=== PATIENT | male | born 1960 | race Caucasian/White ===

== ENCOUNTER 2017-09-29 21:04 | Emergency (ER) | payer OTHER, SELFPAY ==
[2017-09-29 21:05] VITALS: BP 196/111; PULSE 117; RESP 24; TEMP 38.1; O2SAT 94; BMI 37.9
--- NOTE | 2017-09-29 21:12 | EKG12_ITS ---
Test Reason : PALP Blood Pressure : / mmHG Vent. Rate : 123 BPM Atrial Rate : 123 BPM P-R Int : 130 ms QRS Dur : 088 ms QT Int : 302 ms P-R-T Axes : 033 025 029 degrees QTc Int : 432 ms Sinus tachycardia Otherwise normal ECG Confirmed by MARY HUBER, HEAVEN ([id number]), editorial intern NORI ARCHULETA ([id number]) on 10/03/2017 1:58:54 PM Referred By: Confirmed By:HEAVEN HERNANDEZ MD
--- NOTE | 2017-09-29 21:16 | ED.RN ---
NO OLD EKG'S IN MUSE
[2017-09-29 21:32] LABS: Absolute Lymphocyte Count 1.26 X10^3/ul (0.83-4.51); Absolute Neutrophil Count 5.6 X10^3/uL (2.0-7.7); Basophil# 0.05 X10^3/uL; Basophil% 0.6 % (0-1); Eosinophil# 0.14 X10^3/uL; Eosinophils% 1.7 % (0-5); Hematocrit 44.7 % (40-54); Hemoglobin 15.5 g/dl (13.0-16.5); Lymphocyte # 1.26 X10^3/ul (4.0); Lymphocyte % 15.2 % (19-41); Mean Corp Hgb Conc 34.7 g/gl (32-36); Mean Corpuscular Hgb 30.6 pg (27.0-32.0); Mean Corpuscular Volume 88.3 fL (80-94); Monocyte# 1.29 X10^3/uL; Monocyte% 15.5 % (0-10); Neutrophil # 5.56 X10^3/uL (2.7-7.7); Neutrophil % 66.9 % (47-70); Platelet Count 209 K/mm3 (150-450); RBC Distribution Width CV 12.8 % (11.6-14.6); RBC Distribution Width SD 41.3 fl (35.1-43.9); Red Blood Count 5.06 M/mm3 (4.6-6.2); White Blood Count 8.3 K/mm3 (4.4-11.0)
[2017-09-29 21:35] LABS: POSITIVE COUNT NO; POSITIVE DIFFERENTIAL NO; POSITIVE MORPHOLOGY NO
--- NOTE | 2017-09-29 21:40 | RAD_ITS ---
STUDY: X-RAY CHEST REASON FOR EXAM: Male, 57 years old. Hypertension. TECHNIQUE: Single AP portable view of the chest. COMPARISON: None. FINDINGS: The lungs are clear and expanded. There is no demonstrated pleural abnormality. Normal size heart. Normal mediastinum and lucille. Normal visualized pulmonary arteries. Normal visualized aortic arch and descending thoracic aorta. Normal visualized thoracic spine. Normal visualized ribs, clavicles, and shoulders. There is no demonstrated abnormality of the visualized soft tissue structures of the upper abdomen. RAD/Chest 1 View (Portable) IMPRESSION: Normal x-ray examination of the chest. Electronically Signed: Segun Ruiz MD at 22:00 EDT , Service support ,
[2017-09-29 21:55] LABS: Anion Gap 7 (5-15); BUN 19 mg/dL (7-18); BUN/Creat Ratio 14.8 RATIO (10-20); Calcium,Total 8.5 mg/dL (8.5-10.1); Chloride 100 mmol/L (98-107); Creatinine, Serum 1.28 mg/dL (0.70-1.30); EST Glomerular Filtration Rate 62 mL/min (>60); Est Glom Filt Rate - Afr Amer 74 mL/min (>60); Estimated Creatinine Clearance 65.74 ml/min; Glucose 135 mg/dL (74-106); Potassium 4.5 mmol/L (3.5-5.1); Sodium Level 134 mmol/L (136-145)
[2017-09-29] MEDS: Acetaminophen 500 MG Tablet 1000 MG PO (23:06)
[2017-09-29 23:07] VITALS: BP 165/94; PULSE 102; RESP 19
[2017-09-29 23:23] LABS: Bacteria 0 SEEN /hpf (None Seen); Mucous, Urine 0 SEEN /hpf (<or=2+); Red Blood Cells-Urine 0 SEEN /hpf (0-5); Squamous Epithelial Cells - UA 0 SEEN /hpf (0-5); White Blood Cells 0 SEEN /hpf (0-5)
[2017-09-29 23:25] LABS: Color, Urine Yellow (Yellow); Glucose, Dipstick Normal (Normal); Ketone-Dipstick Negative (Negative); Leukocyte Esterase-Dipstick Negative /ul (Negative); Nitrite-Dipstick Negative (Negative); Occult Blood-Urine 50 /ul (Negative); Protein-Dipstick 30 mg/dl (Negative); Specific Gravity, Urine 1.015 (1.002-1.030); Urine Bilirubin Dipstick Negative (Negative); Urine Clarity Clear (Clear); Urine Urobilinogen Normal (Normal)
--- NOTE | 2017-09-30 00:42 | ED.VISSUMM ---
- ER Visit Summary Date of Service: 09/30/17 Chief Complaint: Palpitations History of Present Illness: The patient is a 57 M who presents with palpitations for the past 3-4 days. Patient states this has gradually gotten worse. She does admit to some tightness across his chest. Patient admits to a cough. Patient also admits to some nausea but denies any vomiting. Patient denies any dysuria. Patient does admit to some urinary frequency but does state he is also on a diuretic for his blood pressure. Patient admits to some subjective fevers at home. Patient checked his blood pressure at home tonight and it was 190/111. Patient states he rechecked it several times and the lowest was 178/100. Past medical history includes hypertension. Patient denies any other cardiac or PE risk factors. Physical Examination: Vital signs showed blood pressure was 196/111, temperature is 100.6, pulse was 117, respiratory rate was 24, and pulse ox was 94% on room air. Patient is in no acute distress. Oral mucosa is pink and moist. Neck is supple. Trachea is midline. There is no JVD or lymphadenopathy. Heart was regular and tachycardic. Lungs are clear and equal bilateral. There is good respiratory effort noted. Abdomen is soft. Bowel sounds are normal. There is no tenderness. Cranial nerves II through XII are intact. There are no focal motor or sensory deficits noted. Test Results: Chest x-ray does not show any acute cardiopulmonary process. EKG showed sinus tachycardia with a rate of 123. There are no acute ST or T-wave changes. CBC was normal. Basic metabolic profile showed a slightly low sodium of 134. Urinalysis was within normal limits. Troponin was less than 0.02. Emergency Department Course and Treatment: Patient was given a dose of Tylenol here. Heart rate improved to 102. Blood pressure improved to 165/94. Respiratory rate improved to 19. Patient felt better on reevaluation. Patient was instructed to keep a log of his blood pressures. Patient was instructed to follow-up with his primary care physician in 5-7 days. Patient understood and was agreeable with the plan. All questions were answered. Disposition: Discharge home Impression: Palpitations This note was generated with [employer] software. It may contain incorrect words, spelling, and punctuation that were not noted in review of the chart prior to signing ED Disposition - Plan for ED Patient: Disposition: Home or Assisted Living Chief Complaint: Palpitations Diagnosis: Palpitations, Hypertension Instructions: ED HTN Established Referrals: Bandar Magana MD [Primary Care Provider] -
[2017-09-30 01:55] VITALS: BP 120/81; PULSE 79; RESP 16; TEMP 37.1
== END 2017-09-30 01:55 | disposition home or self-care (01) ==
PROVIDERS: Emergency Provider Emergency Medicine; Family Provider Family Medicine; PCP Family Medicine
DX: R00.2 Palpitations (principal); I10 Essential (primary) hypertension
CPT/HCPCS: 71045; 80048; 81001; 84484; 85025; 93005; 99285; A4216

== ENCOUNTER 2018-12-27 22:17 | Observation (INO) | payer OTHER, SELFPAY ==
[2018-12-27 22:17] VITALS: BP 187/109; PULSE 98; RESP 16; TEMP 37.1; O2SAT 96; BMI 39.4
--- NOTE | 2018-12-27 22:35 | ED.DCSUM_ITS ---
History of Present Illness Chief Complaint: Abd Pain Detail of Chief Complaint: Left lower quadrant pain Informant: Patient, Family Onset: Yesterday Context: Gradual Onset Timing: Intermittent Current Severity: Moderate Maximum Severity: Moderate Worsened by: Worse after meals Associated Symptoms: Some nausea but no vomiting. Normal bowel movement. Narrative: Patient presents with intermittent left lower quadrant abdominal pain that started after lunch yesterday. Pain seems to be worse after meals and subsides after an hour or so. Tonight the pain worsened again. He has not noted fever. He denies any prior abdominal surgeries. Last colonoscopy was approximately 1 year ago and normal. He reports normal bowel movement this evening and no pain with bowel movement. He has no urinary symptoms. - Past Medical History (1) Hypertension Status: Chronic Past Medical History - Allergies and Home Meds Allergies/Adverse Reactions: Allergies No Known Allergies Allergy (Verified 12/27/18 22:20) Primary Care Physician: Bandar Magana MD [Primary Care Provider] - Prior records reviewed: Yes Past Medical History: - - Reviewed Smoking Status: Never smoker Review of Systems General: Denies: Chills, Fever Cardiovascular: Denies: Chest pain Respiratory: Denies: Dyspnea, Cough Gastrointestinal: Reports: Abdominal pain, Nausea. Denies: Vomiting, Diarrhea, Constipation Genitourinary: Denies: Dysuria, Hematuria Musculoskeletal: Denies: Back pain Neurological: Denies: Headache Physical Exam Vital Signs/Narrative: Vital Signs Temp Pulse Resp BP Pulse Ox 12/27/18 22:17 98.7 F 98 16 187/109 H 96 Inital Vital Signs reviewed: Yes General: Well nourished ENT: Moist mucous membranes Cardiovascular: Regular rate, Regular rhythm Respiratory: No distress, CTA bilaterally Abdomen: Soft, Tender, - - Mild left lower quadrant tenderness.. Negative for: Guarding, Rebound tenderness Back: Nontender Extremities: Nontender Skin: Normal color Neurological: Alert, Oriented x3 Diagnostic/Tx/Re-eval Impressions Abdomen CT 12/28/18 22:35 IMPRESSION: No acute intra-abdominal or pelvic disease. Individualized dose optimization techniques were used for this CT. at 0118 Reported and signed by: Fredy Quintero MD Electronically Signed: Fredy Quintero MD at 1:17 EDT Tel , Service support , ADDENDUM: 12/28/18 0133 IMPRESSION: No acute intra-abdominal or pelvic disease. Individualized dose optimization techniques were used for this CT. at 0118 Reported and signed by: Fredy Quintero MD Electronically Signed: Fredy Quintero MD at 1:24 EDT Tel , Service support , ADDENDUM: 12/28/18 0149 IMPRESSION: No acute intra-abdominal or pelvic disease. Individualized dose optimization techniques were used for this CT. at 0118 Reported and signed by: Fredy Quintero MD Electronically Signed: Fredy Quintero MD at 1:17 EDT Tel , Service support , ADDENDUM: 12/28/18 0149 IMPRESSION: No acute intra-abdominal or pelvic disease. Individualized dose optimization techniques were used for this CT. at 0118 Reported and signed by: Fredy Quintero MD Electronically Signed: Fredy Quintero MD at 1:24 EDT Tel , Service support , 12/28/18 22:35 Abdomen/Pel W ORAL Cont Only [CT] Stat Laboratory Results 12/27/18 12/27/18 12/27/18 22:39 22:39 23:20 WBC 12.2 H RBC 5.16 Hgb 15.5 Hct 44.8 MCV 86.8 MCH 30.0 MCHC 34.6 RDW 13.0 RDW Differential 40.5 Plt Count 279 MPV 7.9 Immature Gran % (Auto) 0.200 Neut % (Auto) 73.1 H Lymph % (Auto) 15.1 L [place] % (Auto) 10.2 H Eos % (Auto) 1.2 Baso % (Auto) 0.2 Absolute Neuts (auto) 8.9 H Absolute Lymphs (auto) 1.85 Total Counted Not Reportable Sodium 136 Potassium 3.9 Chloride 103 Carbon Dioxide 26.0 Anion Gap 7 BUN 18 Creatinine 1.48 H Estim Creat Clear Calc 56.17 Est GFR (MDRD) Af Amer 63 Est GFR (MDRD) Non-Af 52 L BUN/Creatinine Ratio 12.2 Glucose 103 Calcium 9.0 Urine Color Yellow Urine Clarity Sl. Cloudy Urine pH 5.0 Ur Specific [place] 1.020 Urine Protein 15 H Urine Glucose (UA) Normal Urine Ketones 5 H Urine Occult Blood 250 H Urine Nitrite Negative Urine Bilirubin Negative Urine Urobilinogen Normal Ur Leukocyte Esterase Negative Urine RBC 5-10 SEEN Urine WBC 0-5 SEEN Ur Squamous Epith Cells 0-5 SEEN Urine Bacteria RARE Urine Mucus 0 SEEN - Medical Decision Making Patient has required a total of 3 doses of pain medication. I did discuss the size and location of his stone and concerns about him passing it. After much debate he has agreed to stay. I have great concern that he would have difficulty controlling the pain at home. I spoke with Dr. Steel, on-call for no doc urology. She declined the patient because he is male. I spoke with Dr. Kovacs and he will admit the patient. ED Disposition - Plan for ED Patient: Disposition: Acute Care Hospital [facility] Diagnosis: Ureterolithiasis Referrals: Bandar Magana MD [Primary Care Provider] -
[2018-12-27] MEDS: Ondansetron 4 MG/2 ML Vial IV (22:44)
[2018-12-27 22:46] LABS: Absolute Lymphocyte Count 1.85 X10^3/ul (0.83-4.51); Absolute Neutrophil Count 8.9 X10^3/uL (2.0-7.7); Basophil# 0.03 X10^3/uL; Basophil% 0.2 % (0-1); Eosinophil# 0.15 X10^3/uL; Eosinophils% 1.2 % (0-5); Hematocrit 44.8 % (40-54); Hemoglobin 15.5 g/dl (13.0-16.5); Lymphocyte # 1.85 X10^3/ul (4.0); Lymphocyte % 15.1 % (19-41); Mean Corp Hgb Conc 34.6 g/gl (32-36); Mean Corpuscular Volume 86.8 fL (80-94); Mean Platelet Vol. 7.9 fl (6.2-12.0); Monocyte# 1.25 X10^3/uL; Monocyte% 10.2 % (0-10); Neutrophil # 8.92 X10^3/uL (2.7-7.7); Neutrophil % 73.1 % (47-70); Platelet Count 279 K/mm3 (150-450); RBC Distribution Width SD 40.5 fl (35.1-43.9); Red Blood Count 5.16 M/mm3 (4.6-6.2); White Blood Count 12.2 K/mm3 (4.4-11.0)
[2018-12-27] MEDS: Morphine 4 MG/ML Syringe IV (22:47)
[2018-12-27] MEDS: 0.9% Normal Saline 1,000 ML 150 ML IV (22:48)
[2018-12-27 22:50] LABS: POSITIVE COUNT NO; POSITIVE DIFFERENTIAL NO; POSITIVE MORPHOLOGY NO
[2018-12-27 23:01] LABS: Anion Gap 7 (5-15); BUN 18 mg/dL (7-18); BUN/Creat Ratio 12.2 RATIO (10-20); Chloride 103 mmol/L (98-107); Creatinine, Serum 1.48 mg/dL (0.70-1.30); EST Glomerular Filtration Rate 52 mL/min (>60); Est Glom Filt Rate - Afr Amer 63 mL/min (>60); Estimated Creatinine Clearance 56.17 ml/min; Glucose 103 mg/dL (74-106); Potassium 3.9 mmol/L (3.5-5.1); Sodium Level 136 mmol/L (136-145)
[2018-12-27] MEDS: HYDROmorphone 0.5 MG/0.5 ML SYRINGE IV (23:05)
[2018-12-27] MEDS: Ketorolac 15 MG/ML Vial IV (23:07)
[2018-12-27 23:27] LABS: Mucous, Urine 0 SEEN /hpf (<or=2+)
[2018-12-27 23:29] LABS: Color, Urine Yellow (Yellow); Glucose, Dipstick Normal (Normal); Ketone-Dipstick 5 mg/dl (Negative); Leukocyte Esterase-Dipstick Negative /ul (Negative); Nitrite-Dipstick Negative (Negative); Occult Blood-Urine 250 /ul (Negative); Protein-Dipstick 15 mg/dl (Negative); Urine Bilirubin Dipstick Negative (Negative); Urine Clarity Sl. Cloudy (Clear); Urine Urobilinogen Normal (Normal)
[2018-12-27 23:35] LABS: Bacteria RARE /hpf (None Seen); Red Blood Cells-Urine 5-10 SEEN /hpf (0-5)
[2018-12-27 23:36] LABS: Squamous Epithelial Cells - UA 0-5 SEEN /hpf (0-5); White Blood Cells 0-5 SEEN /hpf (0-5)
[2018-12-28] VITALS (15 sets, daily range): BP systolic 124–200; BP diastolic 80–117; PULSE 68–102; RESP 16–20; TEMP 36.3–37.2; O2SAT 92–97; BMI 39.6; BMI 39.7
[2018-12-28] MEDS: HYDROmorphone 0.5 MG/0.5 ML SYRINGE IV (00:42)
[2018-12-28] MEDS: 0.9% Normal Saline 1,000 ML 75 ML IV (04:07)
[2018-12-28] MEDS: Morphine 2 MG/ML Syringe IV (04:07)
[2018-12-28] MEDS: Ondansetron 4 MG/2 ML Vial IV (04:07)
--- NOTE | 2018-12-28 05:55 | RAD_ITS ---
STUDY: X-RAY - ABDOMEN/PELVIS REASON FOR EXAM: Male, 58 years old. Left-sided kidney stone. TECHNIQUE: Single AP view of the abdomen / pelvis. COMPARISON: None. FINDINGS: There is a moderate amount of colonic fecal material. There is a 5.7 mm calculus in the midportion of the left abdomen overlying the transverse process of the L3 vertebrae on the left side. Normal soft tissue structures. Normal visualized osseous structures. RAD/Abdomen Single View IMPRESSION: Findings suggestive of a 5.7 mm calculus in the mid left ureter. Electronically Signed: Audie Cooper, at 12:41 EDT , Service support ,
--- NOTE | 2018-12-28 07:11 | HP.PCM_ITS ---
Problem List (1) Ureterolithiasis Status: Acute History of Present Illness Date of Admission: 12/27/18 Chief Complaint: Left obstructing ureteral calculi with hydronephrosis and severe renal colic The patient is a 58 year old male who presented to the emergency room with acute onset of left flank pain CAT scan was done that demonstrated a 5 mm stone in the proximal ureter with hydronephrosis pain was severe in the emergency room was not able to control the pain I was called and asked to admit the patient for pain control. Patient was stable and admitted plan for surgery today to treat the kidney stone. Past Medical History Past Medical History (Chronic Problems): Chronic Problems Hypertension (Chronic) Allergies No Known Allergies Allergy (Verified 12/27/18 22:20) Home Medications: Ambulatory Orders Medication Instructions Recorded Losartan/Hydrochlorothiazide 1 tab PO DAILY 09/29/17 [Losartan-Hctz 100-25 mg Tab] Surgical History: no surgical history Psychiatric History: No pertinent psych hx Lives: With Family Smoking Status: Never smoker Tobacco Use: Non-smoker Alcohol: None Drugs: None - *Family History Maternal History Items: No pertinent history Review of Systems Constitutional: Denies: Chills, Fever, Weight Change HEENT: Denies: Head Aches, Sinus Congestion, Sinus Drainage Cardiovascular: Denies: Chest Pain, Palpitations Respiratory: Denies: Cough, Shortness of breath at rest, Sputum production Gastrointestinal: Reports: Abdominal Pain. Denies: Nausea, Vomiting Genitourinary: Denies: Dysuria Musculoskeletal: Denies: Joint Pain, Joint Tenderness Skin: Denies: Rash, Wounds Neurological: Denies: Numbness, Tingling, Focal weakness Psychiatric: Denies: Anxiety, Depression, Homicidal Ideations, Suicidal Ideations Hematologic/ Lymphatic: Denies: Easy Bruising, Easy Bleeding VTE Information - Inpt Only VTE Present on Admission: No VTE Mechan Device Prophylaxis: SCD's Patient Problems: Active and Suspected Problems Ureterolithiasis (Acute) - Physical Exam General: Alert, Oriented x3, Cooperative HEENT: Atraumatic, PERRLA, EOMI, Normocephalic Neck: Supple, No JVD, Negative Carotid Bruits Lungs: Clear to auscultation, Normal air movement Cardiovascular: Regular rate, No murmurs Abdomen: Bowel Sounds Present, Soft, Non Tender Extremities: No edema, Capillary Refill Less than 3 Seconds Skin: No rashes, No breakdown Musculoskeletal: No Tenderness to Palpation of Joints or Extremities Neurological: Cranial nerves II-XII grossly intact Psych/Mental Status: Normal Affect, Appropriate Vital Signs Temp Pulse Resp BP Pulse Ox 97.4 F L 70 16 148/94 H 95 12/28/18 03:55 12/28/18 03:55 12/28/18 03:55 12/28/18 03:55 12/28/18 04:00 Oxygen Delivery Method Room Air Weight: 125.4 kg Body Mass Index (BMI) 39.6 Intake and Output for Last 24 Hours 12/26/18 12/27/18 12/28/18 23:59 23:59 23:59 Intake Total 126 / 126 Output Total 250 / 250 Balance -124 / -124 Laboratory Tests Past 24 Hrs 12/27/18 12/27/18 12/27/18 22:39 22:39 23:20 WBC 12.2 H RBC 5.16 Hgb 15.5 Hct 44.8 MCV 86.8 MCH 30.0 MCHC 34.6 RDW 13.0 RDW Differential 40.5 Plt Count 279 MPV 7.9 Immature Gran % (Auto) 0.200 Neut % (Auto) 73.1 H Lymph % (Auto) 15.1 L [place] % (Auto) 10.2 H Eos % (Auto) 1.2 Baso % (Auto) 0.2 Absolute Neuts (auto) 8.9 H Absolute Lymphs (auto) 1.85 Total Counted Not Reportable Sodium 136 Potassium 3.9 Chloride 103 Carbon Dioxide 26.0 Anion Gap 7 BUN 18 Creatinine 1.48 H Estim Creat Clear Calc 56.17 Est GFR (MDRD) Af Amer 63 Est GFR (MDRD) Non-Af 52 L BUN/Creatinine Ratio 12.2 Glucose 103 Calcium 9.0 Urine Color Yellow Urine Clarity Sl. Cloudy Urine pH 5.0 Ur Specific [place] 1.020 Urine Protein 15 H Urine Glucose (UA) Normal Urine Ketones 5 H Urine Occult Blood 250 H Urine Nitrite Negative Urine Bilirubin Negative Urine Urobilinogen Normal Ur Leukocyte Esterase Negative Urine RBC 5-10 SEEN Urine WBC 0-5 SEEN Ur Squamous Epith Cells 0-5 SEEN Urine Bacteria RARE Urine Mucus 0 SEEN Assessment/Plan All Active Problems Ureterolithiasis (Acute) 58-year-old male with a 5 mm left ureteral calculi causing obstruction he was a dmitted to the hospital under observation status, n.p.o. for today plan to proceed with left shockwave lithotripsy and possible stent placement.
--- NOTE | 2018-12-28 17:49 | DCINST_ITS ---
Discharge Diet: Light diet - advance as tolerated Discharge Activity: Return to Normal Activity Call your doctor if your incision/area has: Sudden Increased Bleeding Call your doctor if you observe: Fever of 101 or Higher Suture Line Care: Avoid Pulling/Pushing, Avoid Pinching/Bending Allergies/Adverse Reactions: Allergies No Known Allergies Allergy (Verified 12/27/18 22:20) Medications to take at Discharge Losartan/Hydrochlorothiazide [Losartan-Hctz 100-25 mg Tab] 1 tab PO DAILY 09/29/17 Primary Care Physician: Bandar Magana MD [Primary Care Provider] - Test Results: Test results from this visit will be discussed in further detail at your follow- up appointment, if applicable. Please Follow Up With: Lazaro Kovacs MD When: in 2 weeks, please call to make an appointment.
[2018-12-28] MEDS: Cefazolin 2 GM in 0.9% Normal Saline 100 ML IV (17:57)
--- NOTE | 2018-12-28 19:17 | PCM.OPRPT ---
Problem List (1) Ureterolithiasis Status: Acute Report of Operation Date of Procedure: 12/28/18 Pre-Operative Diagnosis: left ureteral calculi Post-Operative Diagnosis: The same Surgery/Procedure Performed:: Left extracorporeal shockwave lithotripsy Description of Surgical Findings:: 58-year-old male taken back to the operating room at the smooth induction of general anesthesia he was placed in supine position on the lithotripter table we localized the stone in the proximal portion of the left ureter and then we proceeded with shockwave lithotripsy we first first 3000 shockwaves at a rate of 90/min and from 7 to 9 kV at this completion we did have a good fragmentation we then gave thousand more shocks to the stone at a rate of 120 up to 9 kV and at the end of the treatment cycle the stone is broken up well patient anesthetic was reversed and will see him in a few weeks for KUB for checkup no stent was placed. Type of Anesthesia:: General Drains: none - Admit VTE Documentation VTE Present on Admission: No VTE Mechan Device Prophylaxis: SCD's
--- NOTE | 2018-12-28 21:05 | NURSING ---
pt returned from PACU; assessment completed
--- NOTE | 2018-12-28 22:35 | CT_ITS ---
HISTORY: LLQ PAIN AND NAUSEA SINCE LAST NIGHT,ELEVATED WBC AND HEMATURIA,ORAL CONTRAST ONLYHX:HTN TECHNIQUE: Helically acquired images were obtained of the abdomen and pelvis without oral or IV contrast. A radiation dose optimization technique was used for this scan. COMPARISON: None FINDINGS: # of images incl. paperwork: 564 LUNG BASES: clear. CT abdomen: Bones are unremarkable. The gallbladder remains. Liver, spleen, pancreas, and adrenal glands are normal. The kidneys are normal. The aorta is normal. There is no intra-or extrahepatic biliary ductal dilatation. CT pelvis: No ascites is present. The uterus/prostate gland is normal. The appendix is normal. . The bladder is normal. Bowel gas pattern is normal. CT/Abdomen/Pel W ORAL Cont Only IMPRESSION: No acute intra-abdominal or pelvic disease. Individualized dose optimization techniques were used for this CT. at 0118 Reported and signed by: Fredy Quintero MD Electronically Signed: Fredy Quintero MD at 1:17 EDT Tel , Service support ,
== END 2018-12-28 21:30 | disposition home or self-care (01) ==
LOC: ED 12-28 02:50 → PCU 12-28 03:45
PROVIDERS: Admitting Provider Urology; Emergency Provider Emergency Medicine; Family Provider Family Medicine; PCP Family Medicine; Referring Provider Urology; Visit Provider Urology
PROC: (CPT 50590; principal; 2018-12-28 16:35)
DX: N13.2 Hydronephrosis with renal and ureteral calculous obstruction (principal); I10 Essential (primary) hypertension; Z79.899 Other long term (current) drug therapy
CPT/HCPCS: 00873; 50590; 74018; 74176; 80048; 81001; 85025; 96361; 96374; 96375; 96376; 99218; 99284; J7030; A4216; G0378; J2405

== ENCOUNTER → 2019-01-15 08:30 | Outpatient (CLI) | payer OTHER, SELFPAY ==
[2018-12-28 03:47] VITALS: BMI 39.6
--- NOTE | 2019-01-15 08:34 | RAD_ITS ---
STUDY: X-RAY - ABDOMEN/PELVIS REASON FOR EXAM: Male, 58 years old. Recent kidney stone. TECHNIQUE: Two AP supine views of the abdomen and pelvis. COMPARISON: 2 AP supine views of the abdomen and pelvis as well as CT abdomen and pelvis with oral contrast December 28, 2018 FINDINGS: Non-visualized lung bases. There is an unremarkable bowel gas pattern. There is no demonstrated free abdominal air. The previously noted proximal left ureteral stone has progressed to the level of the L3 transverse process. 2 small calcifications projecting over the lower pole left kidney could represent additional stones, although these were not present on CT. The visualized liver, spleen and right kidney are grossly normal in size and morphology. There are stable calcified phleboliths in the left pelvis. There are stable degenerative changes of the visualized lumbar spine. RAD/Abdomen Single View IMPRESSION: 1. Left ureteral stone has progressed to the level of the L3 vertebra. 2. Question of small additional stones in the lower pole of left kidney, although these are not seen on the earlier CT. 3. Nonspecific bowel gas pattern. Electronically Signed: Noel Puentes MD at 19:56 EDT , Service support ,
== END ==
PROVIDERS: Family Provider Family Medicine; PCP Family Medicine; Referring Provider Urology; Visit Provider Urology
DX: N20.1 Calculus of ureter (principal)
CPT/HCPCS: 74018

== ENCOUNTER 2019-01-18 06:25 | Day surgery (SDC) | payer OTHER, SELFPAY ==
[2018-12-28 03:47] VITALS: BMI 39.6
[2019-01-18] VITALS (7 sets, daily range): BP systolic 124–155; BP diastolic 86–104; PULSE 69–78; RESP 16–22; TEMP 36–36.6; O2SAT 93–98; BMI 39.2
[2019-01-18] MEDS: Cefazolin 2 GM in 0.9% Normal Saline 100 ML IV (08:10)
--- NOTE | 2019-01-18 08:12 | DCINST_ITS ---
Discharge Diet: Light diet - advance as tolerated Discharge Activity: Return to Normal Activity Call your doctor if your incision/area has: Sudden Increased Bleeding Call your doctor if you observe: Fever of 101 or Higher Suture Line Care: Avoid Pulling/Pushing, Avoid Pinching/Bending Allergies/Adverse Reactions: Allergies No Known Allergies Allergy (Verified 01/17/19 09:40) Medications to take at Discharge Losartan/Hydrochlorothiazide [Losartan-Hctz 100-25 mg Tab] 1 tab PO DAILY 09/29/17 Amoxicillin/Potassium Clav [Augmentin 875-125 Tablet] 1 ea PO BID 01/17/19 Ciprofloxacin [Cipro] 500 mg PO BID #6 tab 01/18/19 The following prescriptions were given: Ciprofloxacin [Cipro] 500 mg PO BID #6 tab Prescription Printed Primary Care Physician: Bandar Magana MD [Primary Care Provider] - Test Results: Test results from this visit will be discussed in further detail at your follow- up appointment, if applicable. Please Follow Up With: Lazaro Kovacs MD When: please call to make an appointment.
--- NOTE | 2019-01-18 08:43 | PCM.OPRPT ---
Report of Operation Date of Procedure: 01/18/19 Pre-Operative Diagnosis: Left mid ureteral calculus status post failed ESWL Post-Operative Diagnosis: The same Surgery/Procedure Performed:: Cystoscopy, balloon dilation of the left ureter, left retrograde pyelogram, interpretation fluoroscopic images, left ureteroscopy laser lithotripsy of stone and left stent placement Description of Surgical Findings:: 58-year-old male who underwent shockwave lithotripsy for a stone in the mid ureter but the stone it failed to break so he comes back now for surgery for ureteroscopy and laser lithotripsy. Patient was taken back to the operating room at the smooth induction of general anesthesia he was placed supine on the table and then in dorsolithotomy position the penis and testicles are prepped and draped in usual sterile fashion. Went into the bladder with a 21 [place] rigid cystourethroscope. The entire length urethra is normal the prostate was normal the sphincter was intact to the verumontanum was identified. The left and right ureteral orifice were identified he had a fairly high riding bladder neck. I then identified the left ureteral orifice cannulated with a wire and then over the wire I advanced the balloon dilator, 15 [place] 12 cm balloon dilator and balloon dilated the distal left ureter. I then left the wire in place and then over the wire went in with a flexible ureteroscope was able to get into the ureter quite easily went up to the mid ureter pulled the wire out and then saw the stone still stuck in the mid ureter completely unbroken. I then used a 270 ?m laser fiber laser the stone little tiny pieces with energy settings of 6 Hz and 1.0 J. After completely lasering the stone into tiny little pieces and water back up into the upper pole of the kidney I then performed a retrograde pyelogram look to the contrast going to the kidney filled the kidney nicely inspected the rest of the kidney no other stones were seen. After interpreting the fluoroscopic images I put a wire through the ureteroscope back my way down the ureter and then over the wire I placed a stent 6 [place] by 26 cm stent. Once the stent was in good position I pulled the wire the stent coiled in the kidney bladder position of the long string on the stent for easy extraction, drained the bladder patient anesthetic was reversed plan to see him next week to remove the stent. Type of Anesthesia:: General Drains: stent left side - Admit VTE Documentation VTE Present on Admission: No VTE Mechan Device Prophylaxis: SCD's
[2019-01-18] MEDS: Ketorolac 15 MG/ML Vial IV (09:09)
== END 2019-01-18 10:30 | disposition home or self-care (01) ==
LOC: SDC 06:26 → AC 06:27
PROVIDERS: Family Provider Family Medicine; PCP Family Medicine; Referring Provider Urology; Visit Provider Urology
PROC: 0TJ98ZZ Inspection of Ureter, Via Natural or Artificial Opening Endoscopic (ICD-10-PCS; CPT 52352; principal; 2019-01-18 08:40)
DX: N20.1 Calculus of ureter (principal); Z48.816 Encounter for surgical aftercare following surgery on the genitourinary system; I10 Essential (primary) hypertension
CPT/HCPCS: 52356; 76000; J7120; C1726; C1769; C2617; J2405

== ENCOUNTER → 2021-04-28 | Outpatient (CLI) | payer OTHER, SELFPAY | END | disposition home or self-care (01) | LOC: LABSPEC 09:46 | PROVIDERS: PCP Family Medicine; Referring Provider Physician Assistant; Visit Provider Physician Assistant | DX: Z20.822 Contact with and (suspected) exposure to COVID-19 (principal) | CPT/HCPCS: 87635; U0005; U0003 ==

== ENCOUNTER 2021-06-15 02:33 | Emergency (ER) | payer OTHER, SELFPAY ==
[2021-06-15 02:34] VITALS: BP 181/106; PULSE 78; RESP 18; TEMP 35.8; O2SAT 96; BMI 38.7
--- NOTE | 2021-06-15 02:51 | CT_ITS ---
EXAM: CT ABDOMEN AND PELVIS WITHOUT INTRAVENOUS CONTRAST CLINICAL INDICATION: Kidney Stone TECHNIQUE: Helically acquired images were obtained of the abdomen and pelvis without intravenous contrast. CTDIvol = ( 20.31 ) mGy, DLP = ( 1151.87 ) mGycm This CT exam was performed using one or more of the following dose reduction techniques: automated exposure control, adjustment of the mA and/or kV according to patient size, and/or use of iterative reconstruction technique. This report was created using 4th aspect report generation technology. COMPARISON: 12/28/2018 CT abdomen pelvis. FINDINGS: LOWER THORAX: Coronary calcific arteriolosclerosis. Lung bases are clear. No cardiomegaly. No significant pericardial effusion. ABDOMEN: LIVER: Unremarkable. Homogeneous. GALLBLADDER AND BILE DUCTS: Unremarkable. No calcified gallstones. No gallbladder distention or wall edema. No intra- or extrahepatic biliary ductal dilation. PANCREAS: Unremarkable. No focal cystic mass. SPLEEN: Unremarkable. Normal size without focal cystic or solid mass. ADRENALS: Unremarkable. No nodules. KIDNEYS AND URETERS: 5 mm nonobstructing calyceal calculus at the lower pole of the left kidney. No other renal abnormalities. STOMACH AND BOWEL: Unremarkable. No stomach or bowel distention. No focal inflammatory change. PELVIS: APPENDIX: No evidence of acute appendicitis. BLADDER: Unremarkable. REPRODUCTIVE: Unremarkable as visualized. No mass. ABDOMEN and PELVIS: INTRAPERITONEAL SPACE: Unremarkable. No ascites or other fluid collection. No free air. BONES/JOINTS: Unremarkable. No suspicious lytic or blastic abnormality. SOFT TISSUES: Unremarkable. No discrete abdominal or pelvic wall hernia. VASCULATURE: Unremarkable. Abdominal aorta is non-dilated. LYMPH NODES: Unremarkable. No enlarged lymph nodes. CT/Abdomen/Pelvis without Cont IMPRESSION: 5 mm nonobstructing calyceal calculus at the lower pole of the left kidney. No other acute or inflammatory disease or bowel obstruction. Electronically Signed: Jose Manuel Gonzalez MD at 3:32 EST Tel , Service support ,
--- NOTE | 2021-06-15 02:53 | ED.VIS.GI ---
HPI HPI - GI History of Present Illness Chief Complaint: Flank Pain Narrative Narrative: Patient with past medical history of hypertension and previous ureterolithiasis 3 years ago presents with left flank pain that began 2 days ago. He states day he began feeling pain in his back. The pain is higher up and radiates mildly towards the front. He is nauseated but has not had any vomiting. He denies any dysuria or hematuria. No fevers or chills. He has been taking ibuprofen with mild relief of his symptoms. This evening/slide machine tender the pain increased and he felt he needed to come to the hospital for analgesia. He denies any exacerbating or alleviating factors. [facility] Medical History (Updated 06/15/21 @ 03:58 by Ashu Cobian MD) Kidney stones Home Medications losartan-hydrochlorothiazide 1 tab PO DAILY 09/29/17 [History Last Taken 12/27/18 05:30] hydrocodone-acetaminophen 1 tab PO Q4H PRN 3 Days #12 tab 06/15/21 [Rx Last Taken Unknown] Allergy/AdvReac Type Severity Reaction Status Date / Time No Known Allergies Allergy Verified 06/15/21 02:36 Social History Smoking Status: Never smoker ROS ROS ED ROS Narrative Constitutional: No fever, no chills. HEENT: No sore throat. No neck pain. No loss of vision. No rhinorrhea. Cardiovascular: No chest pain. No palpitations. No pedal edema. Respiratory: No cough, no shortness of breath. Abdominal: No abdominal pain. Positive nausea. No vomiting. Genitourinary: No dysuria. No hematuria. Positive left flank pain. Musculoskeletal: No myalgias. No arthralgias. Neurologic: No headaches. No dizziness. No lightheadedness. Skin: No rash. No change in color. Psychiatric: No depression. No anxiety. EXAM Physical Exam Narrative Exam Narrative: Afebrile. Vital signs noted. HEENT: Normocephalic. Atraumatic. PERRL, EOMI. Neck soft and supple. No point tenderness or step off. Cardiovascular: Regular rate and rhythm. No murmurs, rubs, or gallops appreciated. Respiratory: No tachypnea. Lungs clear to auscultation bilaterally. Gastrointestinal: Abdomen soft, nontender, with normoactive bowel sounds. No rebound or guarding. No CVA tenderness to percussion. Neurological: Awake. Alert. Nonfocal, nonlateralizing. Skin: No rash. Normal color. No pallor. Musculoskeletal: No pedal edema. Full range of motion extremities. Const Vital Signs: 06/15/21 02:34 Temperature 96.4 F L Temperature Source Temporal Pulse Rate 78 Respiratory Rate 18 Blood Pressure 181/106 H Blood Pressure Mean 131 Pulse Ox 96 Oxygen Delivery Method Room Air MDM MDM MDM Narrative Medical decision making narrative: Comprehensive work-up was pursued. He was administered ketorolac, morphine, and ondansetron. Laboratory work and CT imaging will be obtained. CBC shows normal white count of 6.1, hemoglobin stable at 4.8. Basic metabolic panel shows sodium slightly low at 135 but he was bolused normal saline. Creatinine normal at 1.10 with a BUN of 17. Urinalysis shows no evidence of infection. There is occult blood at 25. His CT without contrast shows a left renal stone at the calyx in the lower pole of the left kidney that measures 5 mm. There is no obstructing stone or hydronephrosis. At this point in time, he may be having intermittent movement causing obstruction. Upon repeat examination he feels improved. I will write him a prescription for hydrocodone for the next 3 days. He will follow up with his urologist, Dr. Kovacs. He will continue his [id number] ibuprofen as needed. At this point in time, I feel he be discharged safely home with follow-up. Return instructions to the emergency department were reviewed. Disposition is discharged home in stable condition. Lab Data Attestation: I reviewed the patient's lab results. Labs: Laboratory Results - last 24 hr 06/15/21 06/15/21 06/15/21 02:44 02:44 03:11 WBC 6.1 RBC 4.91 Hgb 14.8 Hct 44.0 MCV 89.6 MCH 30.1 MCHC 33.6 RDW Std Deviation 39.1 RDW Coeff of Kimmy 11.9 Plt Count 289 MPV 8.1 Immature Gran % (Auto) 0.200 Neut % (Auto) 61.0 Lymph % (Auto) 21.1 [place] % (Auto) 13.0 H Eos % (Auto) 3.9 Baso % (Auto) 0.8 Absolute Neuts (auto) 3.7 Absolute Lymphs (auto) 1.28 Nucleated RBC % 0 Sodium 135 L Potassium 3.9 Chloride 99 Carbon Dioxide 29.0 Anion Gap 7 BUN 17 Creatinine 1.10 Estim Creat Clear Calc 73.74 Est GFR (MDRD) Af Amer 88 Est GFR (MDRD) Non-Af 72 BUN/Creatinine Ratio 15.5 Glucose 127 H Calcium 8.6 Urine Color Yellow Urine Clarity Clear Urine pH 5.0 Ur Specific [place] 1.020 Urine Protein Negative Urine Glucose (UA) Normal Urine Ketones Negative Urine Occult Blood 25 H Urine Nitrite Negative Urine Bilirubin Negative Urine Urobilinogen Normal Ur Leukocyte Esterase Negative Urine RBC 0 SEEN Urine WBC 0-5 SEEN Ur Squamous Epith Cells 0 SEEN Urine Bacteria 0 SEEN Urine Mucus 0 SEEN Radiography Diagnostic Testing: Clinical Impression(s) from Imaging Studies Abdomen/Pelvis CT 06/15/21 02:51 IMPRESSION: 5 mm nonobstructing calyceal calculus at the lower pole of the left kidney. No other acute or inflammatory disease or bowel obstruction. Electronically Signed: Jose Manuel Gonzalez MD at 3:32 EST Tel , Service support , Discharge Plan Triage Chief Complaint: Flank Pain ED Provider: Ashu Cobian Dx/Rx/DC Orders Clinical Impression: Acute left flank pain, Renal calculus Instructions: ED Flank Pain, Uncertain Cause, ED Kidney Stone w/ Colic Prescriptions: New hydrocodone-acetaminophen 5-325 mg tablet 1 tab PO Q4H PRN (Reason: pain) 3 Days Qty: 12 RF: 0 No Action losartan-hydrochlorothiazide 1 EACH tablet 1 tab PO DAILY RF: 0 Primary Care Provider: Bandar Magana Referrals: Lazaro Kovacs MD [STAFF PHYSICIAN] - 06/18/21 Bandar Magana MD [Primary Care Provider] -
[2021-06-15 03:08] LABS: Absolute Lymphocyte Count 1.28 X10^3/uL (0.83-4.51); Absolute Neutrophil Count 3.7 X10^3/uL (2.0-7.7); Basophil# 0.05 X10^3/uL; Basophil% 0.8 % (0-1); Eosinophil# 0.24 X10^3/uL; Eosinophils% 3.9 % (0-5); Hemoglobin 14.8 g/dL (13.0-16.5); Lymphocyte # 1.28 X10^3/ul (0.83-4.51); Lymphocyte % 21.1 % (19-41); Mean Corp Hgb Conc 33.6 g/dL (32-36); Mean Corpuscular Hgb 30.1 pg (27.0-32.0); Mean Corpuscular Volume 89.6 fL (80-94); Mean Platelet Vol. 8.1 fl (6.2-12.0); Monocyte# 0.79 X10^3/uL; NRBC Flagged by Analyzer 0 % (0-5); Neutrophil # 3.71 X10^3/uL (2.7-7.7); Platelet Count 289 K/mm3 (150-450); RBC Distribution Width CV 11.9 % (11.6-14.6); RBC Distribution Width SD 39.1 fl (35.1-43.9); Red Blood Count 4.91 M/mm3 (4.6-6.2); White Blood Count 6.1 K/mm3 (4.4-11.0)
[2021-06-15 03:15] LABS: Bacteria 0 SEEN /hpf (None Seen); Mucous, Urine 0 SEEN /hpf (<or=2+); Red Blood Cells-Urine 0 SEEN /hpf (0-5); Squamous Epithelial Cells - UA 0 SEEN /hpf (0-5)
[2021-06-15 03:17] LABS: Anion Gap 7 (5-15); BUN 17 mg/dL (7-18); BUN/Creat Ratio 15.5 RATIO (10-20); Calcium,Total 8.6 mg/dL (8.5-10.1); Chloride 99 mmol/L (98-107); EST Glomerular Filtration Rate 72 mL/min (>60); Est Glom Filt Rate - Afr Amer 88 mL/min (>60); Estimated Creatinine Clearance 73.74 ml/min; Glucose 127 mg/dL (74-106); Potassium 3.9 mmol/L (3.5-5.1); Sodium Level 135 mmol/L (136-145)
[2021-06-15 03:17] LABS: Color, Urine Yellow (Yellow); Glucose, Dipstick Normal (Normal); Ketone-Dipstick Negative (Negative); Leukocyte Esterase-Dipstick Negative /ul (Negative); Nitrite-Dipstick Negative (Negative); Occult Blood-Urine 25 /ul (Negative); Protein-Dipstick Negative (Negative); Urine Bilirubin Dipstick Negative (Negative); Urine Clarity Clear (Clear); Urine Urobilinogen Normal (Normal)
[2021-06-15] MEDS: Ondansetron 4 MG/2 ML Vial IV (03:20)
[2021-06-15] MEDS: Ketorolac 15 MG/ML Vial IV (03:22)
[2021-06-15] MEDS: Morphine 4 MG/ML Syringe IV (03:24)
[2021-06-15] MEDS: 0.9% Normal Saline 1,000 ML 999 ML IV (03:25)
[2021-06-15 03:42] LABS: White Blood Cells 0-5 SEEN /hpf (0-5)
[2021-06-15 04:06] VITALS: RESP 16
== END 2021-06-15 04:06 | disposition home or self-care (01) ==
LOC: ED 03:29
PROVIDERS: Emergency Provider Emergency Medicine; PCP Family Medicine
DX: N20.0 Calculus of kidney (principal); I10 Essential (primary) hypertension; Z79.899 Other long term (current) drug therapy; Z87.442 Personal history of urinary calculi
CPT/HCPCS: 74176; 80048; 81001; 85025; 96361; 96374; 96375; 99283; J7030; A4216; J2405

== ENCOUNTER 2024-09-13 08:50 | Emergency (ER) | payer OTHER, SELFPAY ==
[2024-09-13 08:51] VITALS: BP 176/98; PULSE 86; RESP 20; TEMP 36.6; O2SAT 97; BMI 35.6
[2024-09-13 09:08] VITALS: O2SAT 96
--- NOTE | 2024-09-13 09:22 | EX.ED.GENINJ ---
HPI History of Present Illness Chief Complaint: Fall Narrative Narrative: Patient is a 64-year-old male who had a mechanical fall that occurred last evening around 6 PM. Patient is at bedside. Patient was able to walk back to bed 3, limping on the right leg. 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 Patient stated that he had a misstep on a ramp last evening, twisting his right knee and falling backwards on the outstretched hand to the left wrist. Patient is right-hand dominant. Patient did not hit his head. He has no headache or neck pain. No chest pain or shortness of breath. Patient has mild pain to left wrist, patient has moderate pain to the right knee. Patient having moderate to severe pain with active range of motion of flexion extension of the right knee. Patient has seen a orthopedic surgeon many years ago for his right shoulder. Patient has minimal swelling to left wrist. Patient has mild swelling to the right knee. Patient feels the pain is inside the right knee. He has no other acute complaints. No obvious deformities to right knee or left wrist. [facility] Medical History (Updated 09/13/24 @ 09:[address] Shaq Gaitan, DO) Kidney stones Home Medications ?Medication ?Instructions ?Recorded ?Last Taken ?Type losartan 100 1 tab PO DAILY blood pressure 09/29/17 12/27/18 05:30 History mg-hydrochlorothiazide 25 mg tablet hydrocodone-acetaminophen 5-325mg 1 tab PO Q4H PRN pain 3 days #12 06/15/21 Unknown Rx 5mg-325mg tabs hydrocodone-acetaminophen 5-325mg 1 tab PO Q4H PRN PRN Pain 2 days 09/13/24 Unknown Rx 5mg-325mg #10 TABLETS Allergy/AdvReac Type Severity Reaction Status Date / Time No Known Allergies Allergy Verified 09/13/24 09:10 Surgical History (Updated 09/13/24 @ 09:08 by Lauren Griggs) Hx of tonsillectomy Social History Smoking Status: Never smoker ROS ROS ED ROS Narrative REVIEW OF SYSTEMS: Unless otherwise stated in this report the patient's positive and negative responses for review of systems for constitutional, eyes, ENT, cardiovascular, respiratory, gastrointestinal, neurological, , musculoskeletal, and integument systems and related systems to the presenting problem are either stated in the history of present illness or were not pertinent or were negative for the symptoms and/or complaints related to the presenting medical problem. EXAM Physical Exam Narrative Exam Narrative: Vital signs reviewed and patient is not hypoxic. General: The patient appears well and in no apparent distress. Patient is resting comfortably on cart. Not toxic, lethargic, or listless. Skin: Warm, dry, no pallor noted. There is no rash noted. Head: Normocephalic, atraumatic Eye: Normal conjunctiva, no drainage, EOMI. PERRL. Ears, Nose, Mouth, and Throat: oral mucosa is moist. Nares patent. Mouth without vesicles. Cardiovascular: Regular Rate and Rhythm, no murmurs, gallops, or rubs Respiratory: Patient is in no distress, no accessory muscle use, lungs are clear to auscultation, no wheezing, rales or rhonchi Back: non-tender, no CVA tenderness bilaterally to percussion. NO CTLS midline or paraspinal tenderness to palpation. GI: Soft, no tenderness Musculoskeletal: The patient has full range of motion of all extremities and joints with no difficulty except to the right knee and left wrist. Patient has no significant swelling to the left wrist. Patient has mild pain with flexion extension abduction adduction of the left wrist. No pain to anatomical snuffbox, no pain with axial loading of the left thumb. Patient's range of motion of the left elbow and shoulder with no difficulty. Patient right knee shows minimal swelling to the superior lateral aspect. Patient is able to extend 180 degrees, patient can only flex his knee to approximately 30 to 40 degrees into his moderate pain. Limited range of motion secondary to pain. Patient does not appear to have a positive anterior posterior drawer sign. No pain with varus or valgus stress. Patient pain is in the middle of the knee. No pain to the right patella. Patient has no right hip pain, no pain in the right ankle or foot. Patient has no motor, no sensory deficits. Neurological: A&O x4, normal speech, no focal neurological deficits. Psychiatric: Cooperative Const Vital Signs: 09/13/24 08:51 09/13/24 09:08 Temperature 97.9 F Temperature Source Oral Pulse Rate 86 Respiratory Rate 20 H Respiratory Effort Normal Respiratory Depth Normal Respiratory Pattern Normal Blood Pressure 176/98 H Blood Pressure Mean 124 Pulse Ox 97 96 Oxygen Delivery Method Room Air Room Air MDM MDM MDM Narrative Medical decision making narrative: Patient seen and examined: Patient has moderate pain to the right knee, limited flexion secondary to pain. No obvious deformity. Patient has mild pain to left wrist, mild pain with passive range of motion. Differential diagnosis includes but is not limited to: Left wrist pain/fracture, right knee pain/meniscal tear/sprain/internal derangement Relevant laboratory interpretation: None Radiological studies: Lengthy education was done at bedside with patient and his . Recommendations of performing a right knee x-ray and left wrist x-ray were done. Patient understands recommendation to perform imaging to rule out fracture or acute abnormality. Patient does have a high deductible on his insurance plan. Risk and benefits of performing x-ray were discussed at bedside with patient and his . Patient's physical exam of his left wrist was discussed, patient probably does not have a fracture to left wrist but patient understands I do not know that for certain without getting x-ray. Patient most likely has soft tissue injury to the right knee as well, patient understands without getting x-ray I cannot rule it out at 100% with his right knee as well. Ultimately, shared decision-making was done with patient and his , patient declines to have a right knee x-ray and left wrist x-ray at this time. Reevaluation: Patient was given ice to the right knee and left wrist. Patient was given a [place]. Patient was given a right knee immobilizer and left wrist Velcro splint plan patient declined having x-rays. Shared decision making was done with patient and his . Patient will follow-up with orthopedic surgery. Patient is seen orthopedic surgery in the past, Dr. Calderon who is on-call was given to the patient and his as well. Education using RICE therapy, using Tylenol and anti-inflammatories. Patient understands not to take [place] with Tylenol. Patient understands not to drive with [place] as well. Patient return if he changes his mind to have x-rays. Otherwise patient will follow-up with orthopedic surgery. 10 minutes was spent at bedside discussing the risk and benefits and pluses and minuses of having x-rays are not intended to treat soft tissue injuries. Patient very thankful for care, will follow up with PCP and orthopedic surgery. No questions discharge Social barriers to healthcare: There are no food insecurities, there is no issue with transportation, there are no insurance barriers Disposition: Home Discharge Plan Triage Chief Complaint: Fall ED Provider: Shaq Gaitan Dx/Rx/DC Orders Clinical Impression: Acute pain of right knee, Acute pain of left wrist, Fall Instructions: Self-Care for Strains and Sprains, Knee Pain, ED Meniscal Injury Knee Poss, ED RICE, ED Splints and Casts, ED Knee Sprain Ligaments Prescriptions: New hydrocodone-acetaminophen 5-325 mg tablet 1 tab PO Q4H PRN PRN (Reason: Pain) 2 Days Qty: 10 0RF No Action losartan-hydrochlorothiazide 1 EACH tablet 1 tab PO DAILY Patient Comments: hydrocodone-acetaminophen 5-325 mg tablet 1 tab PO Q4H PRN (Reason: pain) 3 Days Qty: 12 0RF Primary Care Provider: Bandar Magana Referrals: Bandar Magana MD [Primary Care Provider] - Jonny Calderon MD [Med Staff - Active Staff] - Activity Restrictions/Additional Instructions: Use 20 minutes on, 20 minutes off of ice. Do not use heat. Weightbearing as tolerated for the next 1 to 2 weeks. Wear knee brace and wrist brace at all times for the next 3 to 5 days besides ice and shower. Follow-up with orthopedic surgery If pain worsens or any other acute concerns, or he would like an x-ray done, return back to the ER for reevaluation or follow-up with orthopedic surgery. Print Language: Syriac Disposition Disposition: Home, Self Care
[2024-09-13] MEDS: HYDROcodone Bitartrate/Apap 5/325 Tablet PO (10:17)
[2024-09-13 10:25] VITALS: BP 176/98; PULSE 88; RESP 17; TEMP 36.5; O2SAT 98
== END 2024-09-13 10:36 | disposition home or self-care (01) ==
PROVIDERS: Emergency Provider Emergency Medicine; PCP Family Medicine; Visit Provider Emergency Medicine
DX: M25.561 Pain in right knee (principal); M25.532 Pain in left wrist; W19.XXXA Unspecified fall, initial encounter
CPT/HCPCS: 99283